=== PATIENT | male | born 1995 | race Caucasian/White ===

== ENCOUNTER 2024-11-20 01:45 | Emergency (ER) | payer SELFPAY ==
[2024-11-20] MEDS: Lidocaine 1% with EPINEPHrine 1:200,000 30 ML SDV INJECT ONE (01:58)
[2024-11-20] MEDS: Diphtheria,Pertussis(Acell),Tetanus Vaccine 0.5 ML Syringe IM ONE (01:58)
[2024-11-20] MEDS: ceFAZolin 1 GM Vial IM ONE (01:59)
== END 2024-11-20 03:32 ==
LOC: MW.ED 01:45
DX: S51.812A Laceration without foreign body of left forearm, initial encounter (principal); Z79.899 Other long term (current) drug therapy; W26.0XXA Contact with knife, initial encounter
CPT/HCPCS: 12034; 90471; 90715; 96372; 99284; J0690; J3490

== ENCOUNTER 2024-11-29 14:59 | Emergency (ER) | payer SELFPAY | END 2024-11-29 15:34 | disposition home or self-care (01) | LOC: MW.ED 14:59 | DX: S51.812D Laceration without foreign body of left forearm, subsequent encounter (principal); Z75.3 Unavailability and inaccessibility of health-care facilities; X58.XXXD Exposure to other specified factors, subsequent encounter; Z79.899 Other long term (current) drug therapy | CPT/HCPCS: 99281; 99283 ==